=== PATIENT | female | born 1965 | race American Indian/Alaskan Native ===

== ENCOUNTER 2021-11-28 13:10 | Outpatient (CLI) | payer OTHER ==
--- NOTE | 2021-12-02 08:52 | Mammography Report ---
DEXA BONE DENSITY SCAN INDICATION / CLINICAL INFORMATION: OSTEOPOROSIS [id number]. 56 years Female COMPARISON: None available. LUMBAR SPINE, L1-L4: - Bone mineral density (BMD) = 0.974 g/cm2. - T-score = -0.7 - Z-score = -0.4 Change (%) since most recent prior (if available): None available. LEFT HIP, TOTAL : - Bone mineral density (BMD) = 1.032 g/cm2. - T-score = 0.7 - Z-score = 0.6 Change (%) since most recent prior (if available): None available. IMPRESSION: 1. WHO Classification: Normal bone density. Fracture Risk: Not Increased. Note: 10-Year Fracture Risk (FRAX) not reported. This DEXA unit lacks FRAX functionality. BMD Reporting Guidelines (ISCD, 2015) BMD Reporting in Postmenopausal Women and in Men Age 50 and Older - T-scores are preferred. - The WHO densitometric classification is applicable. BMD Reporting in Females Prior to Menopause and in Males Younger Than Age 50 - Z-scores, not T-scores, are preferred. This is particularly important in children. - A Z-score of -2.0 or lower is defined as below the expected range for age, and a Z-score above -2.0 is within the expected range for age. - Osteoporosis cannot be diagnosed in men under age 50 on the basis of BMD alone. - The WHO diagnostic criteria may be applied to women in the menopausal transition. http://www.iscd.org/official-positions/8696-ibhr-ggxvpxnv-positions-adult/ Signer Name: Tate Estrada MD Signed: 12/02/2021 8:48 AM Workstation Name: [id number]
== END 2021-11-28 13:11 | disposition home or self-care (01) ==
LOC: MAMMO 13:10
PROVIDERS: ATTEND Internal Medicine Hematology & Oncology
DX: Z13.820 Encounter for screening for osteoporosis (principal)
CPT/HCPCS: 77080